=== PATIENT | male | born 1950 | race Caucasian/White ===

== ENCOUNTER → 2017-05-23 | Outpatient (CLI) | payer OTHER ==
[~2017-05-23] VITALS: Ht 177.8 cm; Wt 129.8 kg
[~2017-05-23] MED LIST: ASPIR 8181 M1 PO; ASPIR-LOW81 MG PO; BACTRIM,SEPT1 TABLET PO; BRILINTA90 MG PO; DIOVAN HCT 31 TABLET PO; ENDOCET 5-3251 EACH PO; FLAGYL500 MG PO; FLEXERIL10 MG PO; FLOMAX0.4 MG PO; HYDROCODON-ACE1 EAC7 PO; LIVALO4 MG PO; METOPROLOL SUC100 MG PO; NITROSTAT0.4 MG SL; NORVASC5 MG PO; PLAVIX75 MG PO; PRAVASTATIN SOD80 MG PO; TYLENOL EXTRA500 MG PO; TYLENOL WITH C1 EACH PO; ZESTORETIC 20-1 EAC1 NG; ZESTORETIC 20-1 EAC1 PO
== END | disposition home or self-care (01) ==
LOC: AMB 11:54
PROC: 0DBL8ZX Excision of Transverse Colon, Via Natural or Artificial Opening Endoscopic, Diagnostic (ICD-10-PCS; principal; 2017-05-23)
DX: Z48.815 Encounter for surgical aftercare following surgery on the digestive system (principal); K63.5 Polyp of colon; D12.3 Benign neoplasm of transverse colon; Z86.010 Personal history of colon polyps; Z90.49 Acquired absence of other specified parts of digestive tract; K64.0 First degree hemorrhoids
CPT/HCPCS: 88305